=== PATIENT | female | born 1990 ===

== ENCOUNTER 2018-09-04 02:35 | Inpatient (IN) | payer OTHER ==
[2018-09-04] MEDS ORDERED: LR 1,000 ML IV SCH (02:55)
[2018-09-04] MEDS ORDERED: LACTATED RINGER'S 1000 ML IV STA (02:55)
[2018-09-04] MEDS ORDERED: PENICILLIN G POTASSIUM IV 5 MU in D5W MINI-BAG PLUS 100 ML IV STA (03:30)
[2018-09-04] MEDS ORDERED: OXYTOCIN 30 UNITS IN 0.9% NaCl 500ML IV BAG (J2590) As Ordered ONE (03:48)
[2018-09-04 03:49] LABS: HEMATOCRIT 35.1 % (36.0-47.0); HEMOGLOBIN 11.3 g/dl (12.0-15.5); MEAN CORPUSCULAR HEMOGLOBIN 28.1 pg (27.0-33.0); MEAN CORPUSCULAR HGB CONC 32.2 g/dl (32.0-36.5); MEAN CORPUSCULAR VOLUME 87.3 fl (80.0-96.0); PLATELET COUNT, AUTOMATED 226 10^3/uL (150-450); RED BLOOD COUNT 4.02 10^6/uL (4.00-5.40); WHITE BLOOD COUNT 15.1 10^3/uL (4.0-10.0)
[2018-09-04] MEDS ORDERED: OXYTOCIN DRIP 30 UNITS in APPROPRIATE DILUENT 1 EA IV SCH (04:05)
--- NOTE | 2018-09-04 04:05 | HPEPDOC ---
Obstetrical History & Physical General Date of Admission Sep 04, 2018 at 02:35 History of Present Illness Iza is a 28yo with SIUP at approx 39w3d who presents with painful, regular ctx since 1800 last night. No LOF. No vaginal bleeding. Has felt movement. She called the physician line and I advised her earlier to come in when ctx were very painful and regular for at least 1-2hr. 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 ABDOMEN: Gravid and non-tender to touch. FETUS: Is vertex (VTX) by sterile vaginal examination (SVE) EXTREMITIES: No edema Laboratory Data CBC/BMP 28wk H/H 11.8/35.7, plt 258 Urine Culture: No Growth Pertinent Laboratoy Data Blood Type: A+ RBC Antibody Screen: Negative HIV: Negative Hepatitis B: Negative Hepatitis C: Unknown Rapid Plasma Reagin: Nonreactive Rubella: Immune Varicella: Immune Chlamydia/Gonorrhea: Negative Group B Streptococcus: Positive Quad Screen Test: Negative Glucose Tolerance Test: 70 Anatomy Ultrasound Ultrasound Date: Apr 26, 2018 Placenta Location: Posterior Normal Anatomy: Yes Placenta Previa: No Steroid Therapy Steroid Therapy: No Vaginal Examination Dilation: 7 cm Effacement: 90% Station: -2 Cervical Consistency: Soft Cervical Position: Anterior Presentation: Cephalic presentation Assessment Heart Rate (FHR): 130 Variability: Moderate Accelerations: Positive Decelerations: None Tocometer Contractions: Yes Frequency: regular, every 2-5 min. Duration: greater than 60 seconds Strength: palpated as strong Assessment/Plan Assessment Iza is a 28yo with SIUP at approx 39w3d in active labor. Vitals wn l, benign exam. SCE /-2, ctx q2-3min. Cat I FHRT. GBS positive, NKDA. Cephalic by SCE. Uncomplicated PMhx. Had 3mll with 1st delivery. Uncomplicated course. Plan Admit and orient. 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 Diet: clear liquids Group B Streptococcus (GBS) positive: PCN per protocol Labs and intravenous (IV) per unit protocol. Lactated Ringers (LR): Bolus 1000 mL, then at 125 mL/hr. Anticipate normal spontaneous delivery () Candidate for epidural as desired MD Kev Linda Katrina D MD Sep 04, 2018 03:44
--- NOTE | 2018-09-04 04:12 | DNPDOC ---
[facility] Delivery Note Delivery Note DATE OF DELIVERY: 04 Sep 2018 PREDELIVERY DIAGNOSIS: 39w3d gestation and labor. POST DELIVERY DIAGNOSIS: Delivered. PROCEDURE: Spontaneous vaginal delivery TEACHING ARTIST: Dr. Evelyn Angulo MD ANESTHESIA: none ESTIMATED BLOOD LOSS: 150 mL. FINDINGS: 7 pound 13 ounce (3540g) male infant, Score 8/9 DELIVERY SUMMARY: Iza is a 28yo [id number] s/p uncomplicated at 39w3d after presenting in active labor at 7cm, delivering at 0350 on 04 Sep 2018. She progressed quickly and at C/C/+2 began pushing. Infant's head delivered OA, restituted THADDEUS, there was a right compound hand. Right anterior shoulder delivered followed by posterior shoulder and corpus. had immediate spontaneous cry and vigorous, placed on maternal abdomen, apgars 8/9, nose and mouth suctioned with bulb suction. Inspection of perineum and vagina revealed no lacerations, two very small hemostatic labial abrasions not needing repair. After approx 2 min, cord was clamped x2 and cut by FOB. With uterine massage and traction on the cord, placenta delivered spontaneously and intact with 3 vessel centrally inserted cord. More uterine massage performed. Complete hemostasis observed. Pitocin given per protocol. All counts were correct x2. Mom and infant were doing well when I left the room. MD Kev Linda Katrina D MD Sep 04, 2018 04:12
[2018-09-04] MEDS ORDERED: ACETAMINOPHEN 500 MG TAB PO PRN (04:15)
[2018-09-04] MEDS ORDERED: RHOGAM 300 MCG (1500 IU) INJ (J2790) IM SCH (04:15)
[2018-09-04] MEDS ORDERED: DIBUCAINE 1% OINTMENT 30GM TOP PRN (04:15)
[2018-09-04] MEDS ORDERED: MEASLES,MUMPS,RUBELLA VACCINE INJ (MMR-II) (90707) SC SCH (04:15)
[2018-09-04] MEDS ORDERED: DOCUSATE SODIUM 100 MG CAP PO PRN (04:15)
[2018-09-04 07:00] VITALS: BP 118/61
[2018-09-04] MEDS ORDERED: PENICILLIN G POTASSIUM IV 2.5 MU in APPROPRIATE DILUENT 1 EA IV SCH (08:00)
[2018-09-04] MEDS: IBUPROFEN 800 MG TAB PO PRN ×2 (08:40→18:23)
[2018-09-04] MEDS: PRENATAL VITAMINS CHEWABLE TABLET PO SCH (08:40)
[2018-09-04 18:00] VITALS: BP 124/72
[2018-09-05 06:05] VITALS: BP 123/79
[2018-09-05] MEDS: PRENATAL VITAMINS CHEWABLE TABLET PO SCH (07:40)
[2018-09-05] MEDS: IBUPROFEN 800 MG TAB PO PRN (07:41)
[2018-09-05] MEDS ORDERED: MAPA500T2 PO (08:48)
[2018-09-05] MEDS ORDERED: IBUP-1114 PO (08:48)
[2018-09-05] MEDS ORDERED: PRENTAB9 PO (08:48)
[2018-09-05] MEDS ORDERED: COLA100C5 PO (08:48)
[2018-09-05] MEDS ORDERED: DIBU1OIN TOP (08:48)
--- NOTE | 2018-09-05 09:18 | IPNPDOC ---
Text Note Date of Service The patient was seen on 09/05/18. NOTE PPD1 States feeling well, pain controlled with prescribed meds. Baby bonding and feeding well. No heavy VB. Lochia slowing. Ambulating and voiding well. Tolerating PO without issues. VSSAF NAD A&O RRR CTAB LE no C/C/E Ut at U, firm a/p: Doing well. Cont routine care. D/C today, to boarding if baby not d/c'd. Sessions VS,Kash, I+O VSKash I+O Vital Signs Date Time Temp Pulse Resp B/P (MAP) Pulse Ox O2 Delivery O2 Flow Rate FiO2 09/05/18 06:05 95.9 64 17 123/79 (94) 09/04/18 18:00 98 SESSIONS,BRADFORD Jurado MD Sep 05, 2018 09:18
--- NOTE | 2018-09-05 15:41 | DSES ---
DATE OF ADMISSION: 09/04/2018 DATE OF DISCHARGE: 09/05/2018 This lady is 28-year-old 3, now para 3, who came in a spontaneous labor at 39 and 3 weeks of gestation. Spontaneous vaginal delivery of a live male infant, weighing 7 pounds 13 ounces, 3540 grams, scores of 8 and 9 at one and five minutes, respectively. On her first day we discussed phlebitis, cystitis, mastitis, metritis, and cellulitis, diet, exercise pain management, perineal, breast, and wound care. Her vital signs this morning: Blood pressure 123/79, respirations 17, pulse 64, temperature 95.6. Her admitting hemoglobin was 11.3, hematocrit 35.1, and platelets were 226. The rest of the examination unremarkable. She is normocephalic, atraumatic. Neck: Full range of motion. Pupils equal and reactive to light. Distal pulses symmetric. No evidence of deep vein thrombosis (DVT), pulmonary embolism (PE), or superficial phlebitis. Chest is clear bilaterally to bases. No wheezes or rhonchi. Abdomen: Soft. Uterus 2 below. Lochia is moderate. Perineum is intact. She did not require any stitches and did not have and an epidural. She has no rashes, lesions, or pruritus. No arthralgia, myalgia. No complaint of joint pain. No complaint of cough, wheezes, shortness breath, or dyspnea on exertion. Abdomen soft, as mentioned. Uterus 2 below. Lochia is moderate. She is passing gas and voiding. The patient will defer control until her 6-week checkup. In summary, we have a term gestation, delivered a live- male . Plan on discharge with medications today. A 6-week checkup.
== END 2018-09-05 11:25 | disposition home or self-care (01) | DRG 807 ==
LOC: M LDI 02:35 → EDBD 02:35 → M OBS 06:17
PROVIDERS: ADMIT Obstetrics & Gynecology; ATTEND Obstetrics & Gynecology
PROC: 10E0XZZ Delivery of Products of Conception, External Approach (ICD-10-PCS; principal; 2018-09-04)
DX: O32.6XX0 Maternal care for compound presentation, not applicable or unspecified (principal); Z37.0 Single live birth; Z3A.39 39 weeks gestation of pregnancy; O99.820 Streptococcus B carrier state complicating pregnancy